=== PATIENT | female | born 1955 | race Two or more races ===

== ENCOUNTER → 2024-07-23 | Outpatient (CLI) | payer MEDICAID ==
[2024-07-23 09:27] LABS: Alanine Aminotransferase 16 U/L (7-40); Albumin 4.4 g/dL (3.2-4.8); Anion Gap 6 (5-15); Aspartate Aminotransferase 19 U/L (13-40); BUN/Creatinine Ratio 11.1 (10.0-20.0); Bilirubin, Total 0.3 mg/dL (0.2-1.0); Blood Urea Nitrogen 10 mg/dL (9-23); Calcium 9.6 mg/dL (8.7-10.4); Carbon Dioxide 28 mmol/L (20-31); Chloride 104 mmol/L (98-107); Creatine Kinase IFCC 75 U/L (34-145); Glucose 92 mg/dL (74-106); HDL Cholesterol 54 mg/dL (40-59); Potassium 4.7 mmol/L (3.5-5.1); Sodium 138 mmol/L (136-145); Total Protein 6.7 g/dL (5.7-8.2); Triglycerides 133 mg/dL (< 150)
[2024-07-23 09:33] LABS: Alkaline Phosphatase 135 U/L (46-116); Cholesterol 206 mg/dL (< 200); LDL Cholesterol 142 mg/dL (< 100)
== END | disposition home or self-care (01) ==
LOC: LAB 08:32
PROVIDERS: ATTEND Internal Medicine
DX: E78.5 Hyperlipidemia, unspecified (principal); E55.9 Vitamin D deficiency, unspecified
CPT/HCPCS: 36415; 80053; 80061; 82306; 82550

== ENCOUNTER → 2024-11-11 | Outpatient (CLI) | payer MEDICAID ==
[2024-11-11 09:19] LABS: Hematocrit 47.2 % (36.0-46.0); Hemoglobin 16.0 g/dL (12.2-16.2); Mean Corpuscular Hemoglobin 31.6 pg (28.0-32.0); Mean Corpuscular Volume 92.9 fL (80.0-100.0); Nucleated Red Blood Cells % 0.1 %
[2024-11-11 09:47] LABS: Alanine Aminotransferase 18 U/L (7-40); Anion Gap 8 (5-15); BUN/Creatinine Ratio 11.2 (10.0-20.0); Blood Urea Nitrogen 10 mg/dL (9-23); Carbon Dioxide 27 mmol/L (20-31); Chloride 104 mmol/L (98-107); Glucose 96 mg/dL (74-106); Potassium 4.3 mmol/L (3.5-5.1); Sodium 139 mmol/L (136-145); Total Protein 7.3 g/dL (5.7-8.2)
[2024-11-11 09:48] LABS: Bilirubin, Total 0.4 mg/dL (0.2-1.0); Creatine Kinase IFCC 69 U/L (34-145); HDL Cholesterol 52 mg/dL (40-59)
[2024-11-11 09:49] LABS: Urine Protein, UAD Negative (Negative)
[2024-11-11 09:50] LABS: Albumin 4.9 g/dL (3.2-4.8); Alkaline Phosphatase 142 U/L (46-116); Calcium 10.8 mg/dL (8.7-10.4); Cholesterol 227 mg/dL (< 200); Triglycerides 152 mg/dL (< 150)
[2024-11-11 10:27] LABS: Free T3 2.83 pg/mL (2.3-4.2)
[2024-11-11 10:28] LABS: Free T4 (Free Thyroxine) 1.02 ng/dL (0.89-1.76)
== END | disposition home or self-care (01) ==
LOC: LAB 08:53
PROVIDERS: ATTEND Internal Medicine
DX: E78.5 Hyperlipidemia, unspecified (principal); E55.9 Vitamin D deficiency, unspecified; L63.9 Alopecia areata, unspecified; Z12.11 Encounter for screening for malignant neoplasm of colon; Z13.9 Encounter for screening, unspecified; Z00.00 Encounter for general adult medical examination without abnormal findings
CPT/HCPCS: 36415; 80053; 80061; 81001; 82306; 82550; 84439; 84443; 84481; 85025; 86376; 86800; 87086

== ENCOUNTER 2024-11-27 11:22 | Outpatient (CLI) | payer MEDICAID | END 2024-11-27 17:00 | disposition home or self-care (01) | LOC: LAB 11:22 | PROVIDERS: ATTEND Internal Medicine | DX: E78.5 Hyperlipidemia, unspecified (principal); E55.9 Vitamin D deficiency, unspecified; L63.9 Alopecia areata, unspecified; Z00.00 Encounter for general adult medical examination without abnormal findings; Z12.11 Encounter for screening for malignant neoplasm of colon; Z13.9 Encounter for screening, unspecified | CPT/HCPCS: 82270 ==